=== PATIENT | male | born 1995 | race Caucasian/White ===

== ENCOUNTER 2016-10-21 20:02 | Emergency (ER) | payer OTHER ==
[2016-10-21 20:09] VITALS: TEMP 98.4
[2016-10-21] MEDS ORDERED: NS 1,000 ML IV ONE ×2 (21:34→21:35)
[2016-10-21 21:44] LABS: % IMMATURE GRANULYOCYTES 0.2 % (0.0-1.1); ABSOLUTE IMMATURE GRANULOCYTES 0.01 10^3/uL (0.00-0.10); ADD DIFF? NO; ADD MORPH? NO; ADD SCAN? NO; ATYPICAL LYMPHOCYTE FLAG 0 (0-99); FRAGMENT RBC FLAG 0 (0-99); HEMATOCRIT 43.9 % (40.0-51.0); HEMOGLOBIN 15.7 g/dL (13.7-17.5); LEFT SHIFT FLG 0 (0-99); LIPEMIA HEMOLYSIS FLAG 90 (0-99); MEAN CELL HEMOGLOBIN 30.9 pg (27.9-34.1); MEAN CELL HEMOGLOBIN CONCENTR. 35.8 g/dL (32.4-36.7); MEAN CELL VOLUME 86.4 fL (81.5-99.8); MEAN PLATELET VOLUME 12.2 fL (8.7-11.7); PLATELET CLUMPS FLAG 30 (0-99); PLATELET COUNT 211 10^3/uL (150-400); RED BLOOD CELL COUNT 5.08 10^6/uL (4.40-6.38); RED CELL DISTRIBUTION WIDTH 11.9 % (11.5-15.2)
[2016-10-21 21:53] LABS: ALANINE AMINOTRANSFERASE 35 IU/L (21-72); ALBUMIN 4.7 g/dL (3.5-5.0); ALKALINE PHOSPHATASE 62 IU/L (38-126); ANION GAP 13 mEq/L (8-16); ASPARTATE AMINOTRANSFERASE 33 IU/L (17-59); BILIRUBIN,TOTAL 1.4 mg/dL (0.1-1.4); BILIRUBIN-CONJUGATED 0.1 mg/dL (0.0-0.5); BILIRUBIN-UNCONJUGATED 1.3 mg/dL (0.0-1.1); CARBON DIOXIDE 24 mEq/l (22-31); CHLORIDE 104 mEq/L (97-110); CREATININE 0.9 mg/dL (0.7-1.3); GLOMERULAR FILTRATION RATE > 60; GLUCOSE 100 mg/dL (70-100); MAGNESIUM 1.8 mg/dL (1.6-2.3); POTASSIUM 3.6 mEq/L (3.5-5.2); SODIUM 141 mEq/L (134-144); TOTAL PROTEIN 7.7 g/dL (6.3-8.2)
--- NOTE | 2016-10-21 22:04 | EDPHY ---
H & P Stated Complaint: HEADACHE AND ANXIETY AFTER HEAVY DRINKING L;AST NIGHT HPI/ROS: CHIEF COMPLAINT: Headache, nausea, "hung over" HISTORY OF PRESENT ILLNESS: reports heavy drinking last night with subsequent dehydration, headache and nausea this morning. He does feel he was hung over, but he feels that worsened throughout the day instead of getting better. Headache is moderate. There is no neck pain or stiffness. No fever or chills. No chest pain shortness of breath. No vomiting but he did have some nausea. No point tenderness of the abdomen. No urinary complaints. Symptoms worsened throughout the day without improvement. No other associated complaints or modifying factors. REVIEW OF SYSTEMS: Ten systems reviewed and are negative unless otherwise noted in the HPI EXAMINATION General Appearance: Alert, no distress Head: normocephalic, atraumatic Eyes: Pupils equal and round, no conjunctival pallor or injection . EOMs intact ENT, Mouth: Mucous membranes moist. Uvula midline. No lesions or erythema Neck: Normal inspection, supple, non-tender. Range of motion in all planes without pain. No meningismus Respiratory: Lungs are clear to auscultation Cardiovascular: Regular rate and rhythm Gastrointestinal: Abdomen is soft and nontender Back: non-tender, no bony abnormalities Neurological: A&O, nonfocal. strength is symmetric 5/5. Sensory intact. No pronator drift. Skin: Warm and dry, no rash Extremities: Nontender, no pedal edema Psychiatric: Mood and affect normal DIFFERENTIAL DIAGNOSES: Including but not limited to: dehydration, acute alcohol intoxication, nausea, headache, influenza MDM: reports of excessive alcohol intake with subsequent headache and nausea. no focal deficits. No meningismus. Labs within normal limits. He is feeling significantly better after 2 L IV fluid. Discharge home with continued fluid intake and avoidance of alcohol. Patient is comfortable with this plan and discharged home in stable condition SUPERVISION:This patient was independently evaluated without the aide of supervising physician. Source: Patient Exam Limitations: No limitations - Personal History Current Tetanus/Diphtheria Vaccine: Yes Current Tetanus Diphtheria and Acellular Pertussis (TDAP): Yes - Medical/Surgical History Hx Asthma: No Hx Chronic Respiratory Disease: No Hx Diabetes: No Hx Cardiac Disease: No Hx Renal Disease: No Hx Cirrhosis: No Hx Alcoholism: No Hx HIV/AIDS: No Hx Splenectomy or Spleen Trauma: No Other PMH: anxiety - Social History Smoking Status: Never smoked Constitutional: Initial Vital Signs Temperature (C) 98.4 F 10/21/16 20:07 Heart Rate 94 10/21/16 20:07 Respiratory Rate 18 10/21/16 20:07 Blood Pressure 152/87 H 10/21/16 20:07 O2 Sat (%) 98 10/21/16 20:07 O2 Delivery Mode Room Air Allergies/Adverse Reactions: No Known Allergies Allergy (Unverified 10/21/16 20:09) Home Medications: Medication Instructions Recorded NK [No Known Home Meds] 01/31/15 Departure - Departure Disposition: Home, Routine, Self-Care Clinical Impression: Dehydration Acute alcoholic intoxication Qualifiers: Complication of substance-induced condition: uncomplicated Qualifier Code: ( F10.120) Alcohol abuse with intoxication, uncomplicated Condition: Good Instructions: Dehydration (ED), At-Risk Alcohol Use (ED) Additional Instructions: Follow-up with primary care physician. Avoid alcohol intake. Continue Oral fluid intake Referrals: NONE *PRIMARY CARE P,. [Primary Care Provider] - As per Instructions Juan Manuel Busch MD [Medical Doctor] - As per Instructions
[2016-10-21 22:14] LABS: CK-MB INTERPRETATION NEGATIVE (NEGATIVE); CREATINE KINASE-MB FRACTION 1.47 ng/mL (0-3.19)
[2016-10-21 23:31] VITALS: BP 132/79; PULSE 76; RESP 20; O2SAT 99
== END 2016-10-21 23:54 | disposition home or self-care (01) ==
DX: E86.0 Dehydration (principal); F10.120 Alcohol abuse with intoxication, uncomplicated

== ENCOUNTER 2016-10-23 17:59 | Emergency (ER) | payer OTHER ==
--- NOTE | 2016-10-23 18:22 | EDPHY ---
H & P Time Seen by Provider: 10/23/16 18:06 HPI/ROS: CHIEF COMPLAINT: shakes, anxiety, alcohol withdrawal? HISTORY OF PRESENT ILLNESS: Patient is a 20-year-old male who presents emergency department with multiple complaints. He is concerned that he has alcohol withdrawal. The patient states he drank heavily on . He was seen in the emergency department the next day for when he assumed was a hangover. He subsequently felt better. Last night he went out drinking again. This afternoon he began to fell shaky and anxious. He was concerned that he had alcohol withdrawal. He took a friend's Xanax at 5:45 a.m.. Patient state his symptoms have improved after the Xanax. Patient states he does not drink daily. Although he drank last prior to that it had been a few weeks since he drink alcohol. REVIEW OF SYSTEMS: My complete review of systems is negative except as mentioned in the HPI. Past Medical/Surgical History: Includes anxiety Past surgical history: Noncontributory Social history: The patient drinks alcohol Smoking Status: Never smoked Physical Exam: Vitals noted. Heart rate 94. GENERAL: Well-appearing, in no acute distress, alert. HEENT: Eyes normal to inspection, normal pharynx, no signs of dehydration. No tongue wag NECK: No thyromegaly, no lymphadenopathy, supple. RESPIRATORY: Clear to auscultation bilaterally, no rales, rhonchi or wheezing. CVS: Regular rate and rhythm, no rubs, murmurs, or gallops. ABDOMEN: Soft, nontender, nondistended, no organomegaly. BACK: Normal to inspection, no CVA tenderness. SKIN: Normal color, no rash, warm, dry. No pallor. EXTREMITIES: No pedal edema, no calf tenderness, no Homans sign or cords, no joint swelling. NEURO/PSYCH: Alert and oriented x3, normal mood and affect, normal motor sensory exam. No obvious cranial nerve deficit. No hand tremor Constitutional: Initial Vital Signs Temperature (C) 36.3 C 10/23/16 18:01 Heart Rate 94 10/23/16 18:01 Respiratory Rate 18 10/23/16 18:01 Blood Pressure 138/81 H 10/23/16 18:01 O2 Sat (%) 96 10/23/16 18:01 O2 Delivery Mode Room Air Allergies/Adverse Reactions: No Known Allergies Allergy (Verified 10/23/16 18:00) Home Medications: Medication Instructions Recorded NK [No Known Home Meds] 01/31/15 Medical Decision Making ED Course/Re-evaluation: I discussed possible etiologies with the patient. At this time I do not feel he needs admission or further treatment in the emergency department for alcohol withdrawal. Nothing has an emergent medical condition at this point. Patient will be given a few Ativan tablets upon discharge for anxiety. He is given warnings. I discussed drinking cessation. Differential Diagnosis: Differential includes but is not limited to alcohol withdrawal, dehydration, anxiety, thyroid disease, electrolyte abnormality, sugar abnormality Departure - Departure Disposition: Home, Routine, Self-Care Clinical Impression: Anxiety Condition: Good Instructions: Anxiety (ED), Alcohol Withdrawal (ED) Additional Instructions: Return with increasing anxiety, chest pain, shortness of breath or other concerns. Referrals: Dillon Chapa MD [Medical Doctor] - 5-7 days, if not improved
[2016-10-23] MEDS ORDERED: LORAZEPAM 1 MG PREPACK#4 BTL TAKEHOME ONE (18:24)
[2016-10-23 18:39] VITALS: BP 110/65; PULSE 89; RESP 20; TEMP 98.4; O2SAT 97
== END 2016-10-23 18:38 | disposition home or self-care (01) ==
DX: F41.9 Anxiety disorder, unspecified (principal)